=== PATIENT | male | born 1975 | race Caucasian/White ===

== ENCOUNTER 2016-04-01 09:08 | Emergency (ER) | payer SELFPAY ==
[~2016-04-01] VITALS: Ht 180.3 cm; Wt 118.4 kg
[~2016-04-01 09:08] MED LIST: NEXIUM40 MG PO; OMEPRAZOLE40 M1 PO; ROXICET 5-3251 EACH PO
[2016-04-01] MEDS ORDERED: CATAPRES0.1 MG PO (09:29)
[2016-04-01] MEDS ORDERED: TRAZODONE HCL50 MG PO (09:29)
[2016-04-01 09:57] VITALS: BP 124/92
== END 2016-04-01 09:57 | disposition home or self-care (01) ==
LOC: EME 09:08
DX: F11.23 Opioid dependence with withdrawal (principal); G89.29 Other chronic pain; K21.9 Gastro-esophageal reflux disease without esophagitis; Z87.442 Personal history of urinary calculi; F17.200 Nicotine dependence, unspecified, uncomplicated
CPT/HCPCS: 99281; 99283

== ENCOUNTER 2016-04-12 06:25 | Emergency (ER) | payer OTHER ==
[~2016-04-12 06:25] MED LIST changes: +CATAPRES0.1 MG PO; +TRAZODONE HCL50 MG PO
[2016-04-12 06:50] LABS: EOSINOPHIL (%) 0.7 % (0-5); EOSINOPHIL COUNT 0.1 K/uL (0-0.3); HEMATOCRIT 40.6 % (38.0-50.0); IMMATURE GRANULOCYTE (%) 0.3 % (0.0-0.7); IMMATURE GRANULOCYTE COUNT 0.3 K/uL; LYMPHOCYTE COUNT 2.1 K/uL (1.0-2.8); MCH 31.3 PG (29.0-34.0); MCHC 34.5 G/DL (30.0-36.0); MCV 90.6 FL (86-99); MEAN PLAT.VOLUME 9.2 uM^3 (9.0-12.4); MONOCYTE (%) 7.8 % (3-12); MONOCYTE COUNT 0.8 K/uL (0-0.8); NEUTROPHIL COUNT 7.6 K/uL (1.8-6.4); PLATELET COUNT 342 K/uL (156-360); RBC DIS.WIDTH-CV 12.9 % (11.8-14.6); RBC DIS.WIDTH-SD 41.8 % (39-53); RED BLOOD COUNT 4.48 M/uL (4.00-5.50); WHITE BLOOD COUNT 10.7 K/uL (4.1-10.2)
[2016-04-12 06:58] LABS: AMYLASE 34 IU/L (1-118); CHLORIDE 107 mEq/L (99-109); POTASSIUM 3.9 mEq/L (3.7-5.4); SODIUM 143 mEq/L (136-147)
[2016-04-12 06:59] LABS: GLUCOSE 122 mg/dL (70-99)
[2016-04-12 07:01] LABS: ANION GAP 10 MEQ/L (2-14)
[2016-04-12 07:03] LABS: GFR ESTIMATE (CALCULATED) > 59 mL/min/; SERUM ETHYL ALCOHOL < 10 mg/dL
[2016-04-12 07:04] LABS: UREA NITROGEN (BUN) 12 mg/dL (9-23)
[2016-04-12 07:06] LABS: LIPASE 16 U/L (1.0-51.0)
[2016-04-12 07:58] LABS: TROP-I INTERPRETATION NEGATIVE; TROPONIN-I < 0.01 ng/mL (0.0-0.30)
[2016-04-12 08:10] LABS: ADD MIUA? NO; BILIRUBIN NEGATIVE; BLOOD NEGATIVE; COLOR YELLOW ((YELLOW)); GLUCOSE (STRIP) NEGATIVE; KETONES NEGATIVE; LEUKOCYTES NEGATIVE; NITRITE NEGATIVE; PROTEIN (STRIP) NEGATIVE; SPECIFIC GRAVITY 1.028 (1.000-1.030); UCUL ADDED? NO; UROBILINOGEN 0.2 MG/DL (0.2-1.0)
[2016-04-12 08:18] LABS: AMPHETAMINE NEGATIVE (500 ng/mL); BARBITURATES NEGATIVE (200 ng/mL); BENZODIAZEPINES NEGATIVE (150 ng/mL); COCAINE NEGATIVE (150 ng/mL); METHADONE NEGATIVE (200 ng/mL); METHAMPHETAMINE NEGATIVE (500 ng/mL); OPIATES (MORPHINE) NEGATIVE (100 ng/mL); PHENCYCLIDINE NEGATIVE (25 ng/mL); THC CANNABINOIDS NEGATIVE (50 ng/mL); TRICYCLIC ANTIDEPRESSANTS NEGATIVE (300 ng/mL)
[2016-04-12 08:19] LABS: INTERNAL CONTROLS VALID? YES; OXYCODONE PRESUMPTIVE POSITIVE (100 ng/mL); PROPOXYPHENE NEGATIVE (300 ng/mL)
[2016-04-12] MEDS ORDERED: MOTRIN800 MG PO (09:04)
[2016-04-12] MEDS ORDERED: LIDOCAINE700 MG TD (09:05)
== END 2016-04-12 09:45 | disposition home or self-care (01) ==
LOC: TRA 06:25
PROVIDERS: Emergency Medicine
DX: S22.31XA Fracture of one rib, right side, initial encounter for closed fracture (principal); S09.90XA Unspecified injury of head, initial encounter; S00.83XA Contusion of other part of head, initial encounter; M54.5 Low back pain; V49.40XA Driver injured in collision with unspecified motor vehicles in traffic accident, initial encounter
CPT/HCPCS: 70450; 70486; 71260; 72125; 72129; 72132; 74177; 80048; 81003; 82150; 83690; 84484; 85025; 86850; 86900; 86901; 93005; 99281; 99285; G0480; J1885